=== PATIENT | male | born 1995 ===

== ENCOUNTER 2021-03-15 15:38 | Emergency (ER) | payer SELFPAY ==
[~2021-03-15] VITALS: Ht 167.6 cm; Wt 86.0 kg
[2021-03-15] MEDS ORDERED: ULTRAM50 M1 PO (20:03)
[2021-03-15] MEDS ORDERED: AMOXICILLIN500 MG PO (20:03)
[2021-03-15 20:25] VITALS: BP 153/98
== END 2021-03-15 20:29 | disposition home or self-care (01) | DRG 159 ==
LOC: ED 15:38
DX: K08.89 Other specified disorders of teeth and supporting structures (principal)

== ENCOUNTER 2024-06-14 19:27 | Emergency (ER) | payer OTHER ==
[~2024-06-14] VITALS: Ht 167.6 cm; Wt 84.0 kg
[~2024-06-14 19:27] MED LIST: AMOXICILLIN500 MG PO; ULTRAM50 M1 PO
[2024-06-14 20:42] LABS: URINE BILIRUBIN - DIPSTICK Negative (NEGATIVE); URINE BLOOD DIPSTICK Negative (NEGATIVE); URINE GLUCOSE - DIPSTICK Negative (NEGATIVE); URINE KETONE Negative (NEGATIVE); URINE LEUK ESTERASE Negative (NEGATIVE); URINE NITRITE - DIPSTICK Negative (Negative); URINE PROTEIN - DIPSTICK Negative (NEG-TRACE); URINE SPECIFIC GRAVITY 1.025; URINE UROBILINOGEN - DIPSTICK 0.2 E.U./dL (0.2)
[2024-06-14 20:43] LABS: BASO% 0.3 % (0-3); EOS% 1.3 % (0-8); HEMATOCRIT 44.7 % (39.0-50.0); IMMATURE GRANULOCYTES 0.1 % (0.0-5.0); LYMPH% 37.3 % (15-41); MEAN CELL VOLUME 89.8 fL CALC (80.0-100.0); MEAN CORPUSCULAR HGB 30.1 pG CALC (26.0-32.0); MEAN CORPUSCULAR HGB CONC 33.6 g/dL CAL (32.0-36.0); MONO% 5.9 % (2-13); NEUT# 3.73 thou/uL (1.82-7.42); NEUT% 55.1 % (42-76); RED BLOOD COUNT 4.98 mill/uL (4.70-6.10)
[2024-06-14 20:47] LABS: URINE COLOR Yellow
[2024-06-14 20:54] LABS: ALBUMIN 4.9 g/dL (3.2-5.0); BILIRUBIN, TOTAL 0.7 mg/dL (0.2-1.3); CREATININE 0.9 mg/dL (0.7-1.3); POTASSIUM 3.8 mmol/l (3.5-5.1); TOTAL PROTEIN 8.2 g/dL (6.3-8.2)
[2024-06-14] MEDS ORDERED: DICYCLOMINE HCL 10 MG/CAP PO ONE (21:55)
[2024-06-14] MEDS ORDERED: KETOROLAC TROMETHAMINE 30 MG/ML SDV IV ONE (21:55)
[2024-06-14 22:14] VITALS: BP 125/86
[2024-06-14 22:30] VITALS: BP 112/71
[2024-06-14 22:39] VITALS: BP 112/71
== END 2024-06-14 22:55 | disposition home or self-care (01) | DRG 392 ==
LOC: ED 19:27
PROVIDERS: Nurse Practitioner
DX: R10.32 Left lower quadrant pain (principal)
CPT/HCPCS: Q9967